=== PATIENT | female | born 1965 | race Caucasian/White ===

== ENCOUNTER → 2017-04-17 | Outpatient (CLI) | payer MEDICARE, OTHER ==
--- NOTE | 2017-04-18 08:22 | MM ---
Reason for exam: screening (asymptomatic). Last mammogram was performed 1 year and 8 months ago. History: Patient is postmenopausal. Benign u/S right breast needle core of the right breast, July 17, 2013. Benign US RT VAD breast biopsy of the right breast, June 05, 2013. Physical Findings: A clinical breast exam by your physician is recommended on an annual basis and results should be correlated with mammographic findings. MG 3D Screening Mammo W/Cad Bilateral CC and MLO view(s) were taken. Prior study comparison: August 03, 2015, bilateral MG screening mammo w CAD. August 04, 2014, bilateral MG screening mammo w CAD. The breast tissue is heterogeneously dense. This may lower the sensitivity of mammography. Finding: There are grouped/clustered calcifications in the right breast previously biopsied. There is a chronic nodularity in the left breast. ASSESSMENT: Incomplete: need additional imaging evaluation, BI-RAD 0 RECOMMENDATION: Special view mammogram of the right breast. [facility] will attempt to contact patient to return for supplemental views.
== END | disposition home or self-care (01) ==
LOC: RADMAMWWP 13:12
PROVIDERS: ATTEND Family Medicine
DX: Z12.31 Encounter for screening mammogram for malignant neoplasm of breast (principal); R92.2 Inconclusive mammogram
CPT/HCPCS: 77063; G0202

== ENCOUNTER → 2017-05-01 | Outpatient (CLI) | payer MEDICARE, OTHER ==
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
== END ==
LOC: WWCWWP 13:19
PROVIDERS: ATTEND Obstetrics & Gynecology
DX: Z01.419 Encounter for gynecological examination (general) (routine) without abnormal findings (principal)

== ENCOUNTER → 2018-09-26 | Outpatient (CLI) | payer MEDICARE, OTHER ==
--- NOTE | 2018-10-06 12:06 | MM ---
Reason for exam: screening (asymptomatic). Last mammogram was performed 1 year and 5 months ago. History: Patient is postmenopausal. No known family history of cancer. Benign u/S right breast needle core of the right breast, July 17, 2013. Benign US RT VAD breast biopsy of the right breast, June 05, 2013. MG 3D Screening Mammo W/Cad Bilateral CC and MLO view(s) were taken. Prior study comparison: April 17, 2017, bilateral MG 3d screening mammo w/cad. August 03, 2015, bilateral MG screening mammo w CAD. The breast tissue is extremely dense which could obscure a lesion on mammography. Previous mammotome on the right. No significant changes when compared with prior studies. ASSESSMENT: Benign, BI-RAD 2 RECOMMENDATION: Routine screening mammogram of both breasts in 1 year.
== END ==
LOC: RADMAMWWP 10:49 → EEVIPCON 11:00
PROVIDERS: ATTEND Family Medicine
DX: Z12.31 Encounter for screening mammogram for malignant neoplasm of breast (principal)
CPT/HCPCS: 77063; 77067

== ENCOUNTER → 2018-11-05 | Outpatient (CLI) | payer MEDICARE, OTHER ==
[2018-11-05 15:12] VITALS: BP 105/58; PULSE 102; RESP 16; TEMP 97.2; BMI 19.8
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
== END ==
LOC: WWCWWP 14:39
PROVIDERS: ATTEND Obstetrics & Gynecology
DX: Z53.9 Procedure and treatment not carried out, unspecified reason (principal)

== ENCOUNTER 2019-06-08 09:12 | Emergency (ER) | payer MEDICARE, OTHER ==
[2019-06-08 09:23] VITALS: TEMP 98.1
[2019-06-08] MEDS ORDERED: levETIRAcetam IV 500 MG in SODIUM CHLORIDE 0.9% 100 ML IVPB STA (09:23)
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
[2019-06-08 10:18] LABS: Basophils % (A) 0 %; Eosinophils # (A) 0.1 k/uL (0-0.7); Eosinophils % (A) 1 %; HCT 36.3 % (34.0-46.0); HGB 11.7 gm/dL (11.4-16.0); Lymphocytes # (A) 1.6 k/uL (1.0-4.8); Lymphocytes % (A) 36 %; MCH 29.6 pg (25.0-35.0); MCHC 32.3 g/dL (31.0-37.0); MCV 91.7 fL (80.0-100.0); Mean Platelet Volume 8.1; Monocytes # (A) 0.3 k/uL (0-1.0); Monocytes % (A) 6 %; Neutrophils # (A) 2.5 k/uL (1.3-7.7); Neutrophils % (A) 56 %; Platelet Count 181 k/uL (150-450); RBC 3.96 m/uL (3.80-5.40); RDW 12.9 % (11.5-15.5); WBC 4.5 k/uL (3.8-10.6)
[2019-06-08 10:25] LABS: ALT 17 U/L (9-52); AST 21 U/L (14-36); African American GFR (CKD) >90 (>60 ml/min/1.73 sqM); Alkaline Phosphatase 62 U/L (38-126); Anion Gap 6 mmol/L; Blood Urea Nitrogen 11 mg/dL (7-17); Calcium 9.7 mg/dL (8.4-10.2); Carbon Dioxide 26 mmol/L (22-30); Chloride 106 mmol/L (98-107); Creatine Kinase 43 U/L (30-135); Glucose 87 mg/dL (74-99); Magnesium 2.1 mg/dL (1.6-2.3); Potassium 4.3 mmol/L (3.5-5.1); Sodium 138 mmol/L (137-145); Total Bilirubin 0.3 mg/dL (0.2-1.3); Total Protein 6.6 g/dL (6.3-8.2)
[2019-06-08] MEDS ORDERED: DIVALPROEX 500 MG TABLET.DR PO STA (11:03)
[2019-06-08 11:50] VITALS: BP 104/61; PULSE 69; RESP 14
== END 2019-06-08 12:09 | disposition home or self-care (01) ==
LOC: EC 09:12 → SUPCPDRO 09:12 → EC 12:09
DX: G40.409 Other generalized epilepsy and epileptic syndromes, not intractable, without status epilepticus (principal); F79 Unspecified intellectual disabilities; F41.9 Anxiety disorder, unspecified; J30.2 Other seasonal allergic rhinitis; F17.200 Nicotine dependence, unspecified, uncomplicated; Z79.899 Other long term (current) drug therapy; Z91.410 Personal history of adult physical and sexual abuse
CPT/HCPCS: 36415; 93005; 80164; 80053; 82550; 83735; 85025; 99284; 96365; J1953

== ENCOUNTER 2019-06-08 15:25 | Inpatient (IN) | payer MEDICARE, OTHER ==
[2019-06-08] MEDS ORDERED: SODIUM CHLORIDE 0.9% 500 ML 500 ML IV STA (15:51)
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
[2019-06-08 16:59] LABS: Basophils % (A) 0 %; Eosinophils # (A) 0.1 k/uL (0-0.7); Eosinophils % (A) 1 %; HCT 40.4 % (34.0-46.0); HGB 13.4 gm/dL (11.4-16.0); Lymphocytes # (A) 1.1 k/uL (1.0-4.8); Lymphocytes % (A) 15 %; MCH 30.9 pg (25.0-35.0); MCHC 33.2 g/dL (31.0-37.0); Mean Platelet Volume 8.1; Monocytes # (A) 0.2 k/uL (0-1.0); Monocytes % (A) 3 %; Neutrophils # (A) 5.6 k/uL (1.3-7.7); Neutrophils % (A) 80 %; Platelet Count 191 k/uL (150-450); RBC 4.35 m/uL (3.80-5.40); RDW 14.1 % (11.5-15.5)
[2019-06-08 17:01] LABS: ALT 14 U/L (9-52); AST 27 U/L (14-36); African American GFR (CKD) >90 (>60 ml/min/1.73 sqM); Albumin 4.5 g/dL (3.5-5.0); Alkaline Phosphatase 68 U/L (38-126); Anion Gap 8 mmol/L; Blood Urea Nitrogen 11 mg/dL (7-17); Carbon Dioxide 27 mmol/L (22-30); Chloride 106 mmol/L (98-107); Creatine Kinase 57 U/L (30-135); Glucose 97 mg/dL (74-99); Potassium 4.9 mmol/L (3.5-5.1); Sodium 141 mmol/L (137-145); Total Bilirubin 0.3 mg/dL (0.2-1.3); Total Protein 7.4 g/dL (6.3-8.2)
[2019-06-08 17:50] LABS: Glucose,Whole Blood 102 mg/dL (75-99)
[2019-06-08] MEDS ORDERED: levETIRAcetam 500 MG TAB PO STA (18:20)
[2019-06-08] MEDS ORDERED: DIVALPROEX ER 500 MG TAB.ER.24H PO STA (18:20)
[2019-06-08] MEDS ORDERED: NALOXONE 0.4 MG/ML 1 ML VIAL IV PRN (18:34)
--- NOTE | 2019-06-08 18:45 | CT ---
EXAMINATION TYPE: CT brain wo con DATE OF EXAM: 06/08/2019 HISTORY: seizure CT DLP: 1099.4 mGycm. Automated Exposure Control for Dose Reduction was Utilized. TECHNIQUE: CT scan of the head is performed without contrast. COMPARISON: CT brain October 08, 2015. FINDINGS: There is no acute intracranial hemorrhage or midline shift identified. There is diffuse v entricular and sulcal prominence consistent with diffuse age-related cerebral atrophy most prominent over the bilateral frontal lobes. Cortez-white matter differentiation is preserved. The globes are int act and the visualized sinuses are clear. IMPRESSION: No acute intracranial hemorrhage or midline shift. There is stable mild diffuse bilater al frontal lobe atrophy.
[2019-06-08] MEDS ORDERED: IBUPROFEN 600 MG TAB PO PRN (19:03)
[2019-06-08] MEDS ORDERED: HYDROmorphone 0.5 MG/0.5 ML SYRINGE IVP PRN (19:04)
[2019-06-08] MEDS ORDERED: LORazepam 2 MG/ML INJ IV PRN (19:04)
[2019-06-08] MEDS ORDERED: ACETAMINOPHEN TAB 500 MG TAB PO PRN (19:04)
[2019-06-08] MEDS: SODIUM CHLORIDE 0.9% 1,000 ML IV SCH (19:10)
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
[2019-06-08 20:44] LABS: Amorphous Sediment,Urine Rare /hpf; Appearance,Urine Cloudy (Clear); Bilirubin,Urine Negative (Negative); Blood,Urine Negative (Negative); Color,Urine Light Yellow; Glucose,Urine (UA) Negative (Negative); Ketones,Urine Negative (Negative); Leukocyte Esterase,Urine Negative (Negative); Mucus,Urine Rare /hpf; Nitrite,Urine Negative (Negative); PH, Urine 7.5 (5.0-8.0); Protein,Urine Negative (Negative); RBC,Urine 3 /hpf (0-5); Urobilinogen,Urine <2.0 mg/dL (<2.0); WBC,Urine 1 /hpf (0-5)
[2019-06-08 20:58] LABS: Cocaine Screen,Urine Not Detected (NotDetected); Phencyclidine Screen,Urine Not Detected (NotDetected); Urn Cannabinoid Scrn Not Detected (NotDetected)
[2019-06-08 20:59] LABS: Amphetamine Screen,Urine Not Detected (NotDetected); Barbiturate Screen,Urine Not Detected (NotDetected); Benzodiazepines Screen,Urine Not Detected (NotDetected); Methadone Screen, Urine Not Detected (NotDetected); Opiate Screen,Urine Not Detected (NotDetected); Oxycodone Screen, Urine Not Detected (NotDetected); Tricyclic Antidepressant,Urine Not Detected (NotDetected)
--- NOTE | 2019-06-08 21:55 | HP ---
HISTORY AND PHYSICAL CHIEF COMPLAINT: Seizures. HISTORY OF PRESENT ILLNESS: This 54-year-old woman with a past medical history of seizure disorder, mental disabilities, seasonal allergies, history of anxiety being followed Dr. Eh Hennessy in the outpatient setting, living in an adult foster care. The patient admitted with recurrent seizures, which appears to be like grand mal tonic-clonic seizures. The patient was discharged home but chaotic as the detention is, shortly after that, the patient had a seizure lasting about 5 minutes and the patient taken to [facility] and admitted to the hospital for further evaluation and treatment. The patient also has some myoclonic jerks also. There is no history of fever, rigors or chills. There is no history any chest pain, palpitations or hematochezia or melena at this time. PAST MEDICAL HISTORY: History of seizure disorder, breakthrough seizures, mental disability, history of anxiety, mood disorder. MEDICATIONS: Home medications are: 1. Keppra 1000 mg p.o. b.i.d. 2. Klonopin 0.5 mg b.i.d. 3. Vitamin B1 100 mg p.o. daily. 4. Multivitamins one p.o. daily. 5. Motrin 600 mg daily q.i.d. p.r.n. 6. Folic acid 1 mg p.o. daily. 7. Fexofenadine 180 mg p.o. daily. 8. Colace 100 mg q.h.s. 9. Depakote ER 500 mg p.o. b.i.d. 10.Calcium 600 mg p.o. b.i.d. ALLERGIES: None. FAMILY HISTORY: Is unknown, but the patient is adopted. SOCIAL HISTORY: History of smoking. No history of alcohol intake. REVIEW OF SYSTEMS: ENT: No diminished vision. No diminished hearing. CARDIOVASCULAR system: No angina, or palpitations. RESPIRATORY SYSTEM: No cough. No hemoptysis. GI no nausea or vomiting. no dysuria. NERVOUS SYSTEM: As mentioned earlier. ALLERGY/IMMUNOLOGY: No asthma or hayfever. MUSCULOSKELETAL as mentioned earlier. HEMATOLOGY/ONCOLOGY: No history of anemia. ENDOCRINE: No history of diabetes or hypothyroidism. CONSTITUTIONAL: As mentioned earlier. DERMATOLOGY: Negative. RHEUMATOLOGY negative. PSYCHIATRY as mentioned earlier. PHYSICAL EXAMINATION: Alert and oriented x3. Pulse is 71. Blood pressure 101/59, respiration 18, temperature 98.7, pulse ox 98% on room air. HEENT: Conjunctivae normal. NECK: No JVD. CARDIOVASCULAR: S1, S2 muffled. RESPIRATION: Breath sounds diminished in the bases. No rhonchi. No crackles. ABDOMEN: Soft, nontender. No mass palpable. LEGS: No edema. No swelling. NERVOUS SYSTEM: Higher functions as mentioned earlier. Moves all four limbs. No focal motor or sensory deficits. LYMPHATICS: No lymph nodes palpable in the neck, axilla or groin. SKIN: No ulcers, rashes or bleeding. JOINTS: No active deforming arthropathy. LABS: CBC within normal limits. Creatinine 0.[address] scan showed frontal lobe atrophy. EKG shows no acute changes. ASSESSMENT: 1. Seizures and possible breakthrough seizure. 2. History of seizures. 3. Medical disability. 4. Some mild frontal lobe atrophy in the CT scan. 5. History of anxiety. 6. History of continued ongoing nicotine dependence. RECOMMENDATIONS AND DISCUSSION: This 54-year-old woman who presented with multiple medical issues, at this time, I recommend to continue current medications, management, symptomatic treatment. I recommend UA with micro, drug screen. Otherwise, neurology evaluation. Neuro checks. Seizure precautions. Prognosis guarded because of multiple complex medical issues. We will resume the home medications. Further recommendations to follow. Depakote level was previously found to be normal. We will continue to monitor. Prognosis guarded. Further recommendations to follow. A copy of dictation being forwarded to Dr. Eh Hennessy who is the primary physician. MMODL / MATILDAN: [id number] /
[2019-06-08] MEDS: CALCIUM CARBONATE 500 MG CHEWABLE PO SCH (23:44)
[2019-06-08] MEDS: DOCUSATE 100 MG CAP PO SCH (23:44)
[2019-06-08] MEDS: clonazePAM 0.5 MG TAB PO SCH (23:44)
[2019-06-08] MEDS: HEPARIN SODIUM,PORCINE 5,000 UNIT/ML 1 ML VIAL SQ SCH (23:44)
[2019-06-09 07:28] LABS: Basophils % (A) 0 %; Eosinophils % (A) 1 %; HCT 34.4 % (34.0-46.0); HGB 11.5 gm/dL (11.4-16.0); Lymphocytes # (A) 2.5 k/uL (1.0-4.8); Lymphocytes % (A) 43 %; MCH 31.1 pg (25.0-35.0); MCHC 33.4 g/dL (31.0-37.0); Mean Platelet Volume 8.2; Monocytes # (A) 0.3 k/uL (0-1.0); Monocytes % (A) 5 %; Neutrophils # (A) 2.9 k/uL (1.3-7.7); Neutrophils % (A) 49 %; Platelet Count 170 k/uL (150-450); WBC 5.8 k/uL (3.8-10.6)
[2019-06-09 07:31] LABS: African American GFR (CKD) >90 (>60 ml/min/1.73 sqM); Anion Gap 6 mmol/L; Blood Urea Nitrogen 13 mg/dL (7-17); Calcium 9.3 mg/dL (8.4-10.2); Carbon Dioxide 28 mmol/L (22-30); Chloride 107 mmol/L (98-107); Glucose 86 mg/dL (74-99); Sodium 141 mmol/L (137-145)
[2019-06-09] MEDS: PANTOPRAZOLE 40 MG TABLET PO SCH (09:24)
[2019-06-09] MEDS: HEPARIN SODIUM,PORCINE 5,000 UNIT/ML 1 ML VIAL SQ SCH ×2 (09:24→20:09)
[2019-06-09] MEDS: MULTIVITAMINS, THERA 1 EACH TAB PO SCH (09:24)
[2019-06-09] MEDS: DIVALPROEX ER 500 MG TAB.ER.24H PO SCH ×2 (09:24→20:48)
[2019-06-09] MEDS: clonazePAM 0.5 MG TAB PO SCH ×2 (09:24→20:09)
[2019-06-09] MEDS: CALCIUM CARBONATE 500 MG CHEWABLE PO SCH ×2 (09:24→20:09)
[2019-06-09] MEDS: levETIRAcetam 500 MG TAB PO SCH ×2 (09:24→20:09)
[2019-06-09] MEDS: FOLIC ACID 1 MG TAB PO SCH (09:24)
[2019-06-09] MEDS: THIAMINE 100 MG TAB PO SCH (09:24)
--- NOTE | 2019-06-09 12:20 | P.PN ---
Subjective Progress Note Date: 06/09/19 Principal diagnosis: Seizure disorder Obtained MAR from long term, which shows she had run out of both her Depakote and Keppra for days. No seizure while in-house. EEG. Patient would like to go home. Objective - Vital Signs Vital signs: Vital Signs Temp 99.2 F 06/09/19 12:05 Pulse 88 06/09/19 12:05 Resp 15 06/09/19 12:05 BP 102/55 06/09/19 12:05 Pulse Ox 95 06/09/19 12:05 Intake & Output 06/08/19 06/09/19 06/09/19 18:59 06:59 18:59 Intake Total 60 Output Total 700 Balance -640 Weight 52.163 kg Intake: Oral 60 Output: Urine 700 Other: Voiding Method Bedpan Bedside Commode # Bowel Movements 1 - Exam Gen NAD Pleasant and cooperative MS A+Ox3 Normal speech CN II-XII grossly intact no nystagmus Motor Normal bulk/tone No tremors Intermittent action myoclonic jerks STRICKLAND x4 Sens Intact to LT x4 Coord Not tested DTRs 2+/4 sym throughout Gait Deferred - Labs CBC & Chem 7: 06/09/19 06:42 06/09/19 06:42 Labs: Abnormal Lab Results - Last 24 Hours (Table) 06/08/19 06/08/19 06/08/19 Range/Units 16:35 17:48 20:30 RBC (3.80-5.40) m/uL Creatinine 0.39 L (0.52-1.04) mg/dL POC Glucose (mg/dL) 102 H (75-99) mg/dL Urine Appearance Cloudy H (Clear) Amorphous Sediment Rare H (None) /hpf Urine Mucus Rare H (None) /hpf 06/09/19 06/09/19 Range/Units 06:42 06:42 RBC 3.70 L (3.80-5.40) m/uL Creatinine 0.45 L (0.52-1.04) mg/dL POC Glucose (mg/dL) (75-99) mg/dL Urine Appearance (Clear) Amorphous Sediment (None) /hpf Urine Mucus (None) /hpf - Imaging and Cardiology EEG 06/09/19. No EPD. Polymorphic theta and delta slowing. Myoclonus not epileptic in nature. Please see separate report for details. Assessment and Plan Assessment: Seizure disorder with report of increased seizure frequency, likely due to having run out of AEDs/non-compliance Plan: -Serial VPA levels all within therapeutic range -LEV level pending -Given the new historical information, will make sure to keep patient on her usual AED regimen, i.e. Depakote ER 500mg po bid, Keppra 1g po q12h -EEG unrevealing -Seizure precautions -If no recurrent seizure x 24 hours, may discharge from acute stay and follow up with outpatient neurology (she sees Dr. Luciano) within 1-2 weeks -d/w patient and staff reporter. All questions answered. -No other inpatient neuro res at this time. Will revisit patient prn. Please call with new ?. Thank you again for this consultation. Time with Patient: Less than 30 (Time spent in direct patient care, greater than 50% of which was spent in [id number] counseling and coordination of care: 25 minutes)
--- NOTE | 2019-06-09 12:26 | EEG ---
ELECTROENCEPHALOGRAM REPORT DATE OF TESTING: June 09, 2019 CLINICAL PROBLEM: History of seizure disorder with breakthrough seizures. Also intermittent myoclonic jerks. EEG was requested to rule out epileptic activity. TYPE OF RECORDING: Bedside tracing using the 10-20 international electrode placement system. No sedation was given prior to the beginning of this recording. FINDINGS: The background of this tracing is seen with a polymorphic theta and occasionally delta slowing. There are intermittent myoclonic jerks captured during this recording that have EMG changes but without other electrographic correlates. Photic stimulation does not elicit a driving response. Hyperventilation is not performed in this recording. There is no definitive sleep architecture seen. There is no background asymmetry, ictal or interictal patterns appreciated. IMPRESSION: This is an abnormal electroencephalogram with excessive background slowing that is non-specific but may be seen in cerebral dysfunction of any cause. The clinical myoclonic jerks are seen with EMG changes only. There is no background asymmetry or epileptiform patterns seen in this recording. Clinical correlation is advised. MMNATALY / IJN: [id number] / EMMETT
[2019-06-09] MEDS: SODIUM CHLORIDE 0.9% 1,000 ML IV SCH (17:47)
--- NOTE | 2019-06-09 19:38 | PN ---
PROGRESS NOTE DATE OF SERVICE: 06/09/2019 This 54-year-old woman who was admitted with seizure disorder and possibly breakthrough seizures is being closely monitored. No chest pain. No palpitations. No fever. PHYSICAL EXAMINATION: Alert and oriented x3. Pulse 73, blood pressure 109/57, respiration 17, temperature 98.6, pulse ox 94% on room air. HEENT: Conjunctivae normal. NECK: No jugular venous distention. CARDIOVASCULAR SYSTEM: S1, S2 muffled. RESPIRATORY SYSTEM: Breath sounds diminished at the bases. No rhonchi. No crackles. ABDOMEN: Soft, non-tender. LEGS: No edema. No swelling. NERVOUS SYSTEM: No focal deficit. LABS: CBC within normal limits. Sodium 141, potassium 4.1. ASSESSMENT: 1. Seizures and possible breakthrough seizures. 2. History of seizure. 3. Medical disability. 4. Some mild frontal lobe atrophy on the CT scan. 5. History of anxiety. 6. History of continued and ongoing nicotine dependence. RECOMMENDATIONS AND DISCUSSION: I recommend to continue current medications, continue with the close monitoring, symptomatic treatment. EEG. Neurology evaluation. Increase ambulation. Guarded prognosis. Further recommendations to follow. If the patient is seizure-free in the next 24 hours, possibly going home. MMODL / IJN: [id number] /
[2019-06-09] MEDS: DOCUSATE 100 MG CAP PO SCH (20:09)
[2019-06-10 05:10] VITALS: RESP 16
[2019-06-10 07:51] LABS: Basophils % (A) 1 %; Eosinophils # (A) 0.1 k/uL (0-0.7); Eosinophils % (A) 2 %; HCT 32.7 % (34.0-46.0); HGB 10.9 gm/dL (11.4-16.0); Lymphocytes # (A) 2.5 k/uL (1.0-4.8); Lymphocytes % (A) 57 %; MCH 32.3 pg (25.0-35.0); MCHC 33.5 g/dL (31.0-37.0); MCV 96.4 fL (80.0-100.0); Mean Platelet Volume 10.8; Monocytes # (A) 0.3 k/uL (0-1.0); Monocytes % (A) 6 %; Neutrophils # (A) 1.4 k/uL (1.3-7.7); Neutrophils % (A) 33 %; Platelet Count 128 k/uL (150-450); RBC 3.39 m/uL (3.80-5.40); RDW 14.2 % (11.5-15.5); WBC 4.4 k/uL (3.8-10.6)
[2019-06-10 07:52] LABS: African American GFR (CKD) >90 (>60 ml/min/1.73 sqM); Anion Gap 5 mmol/L; Blood Urea Nitrogen 11 mg/dL (7-17); Calcium 9.4 mg/dL (8.4-10.2); Carbon Dioxide 28 mmol/L (22-30); Chloride 103 mmol/L (98-107); Glucose 88 mg/dL (74-99); Potassium 4.7 mmol/L (3.5-5.1); Sodium 136 mmol/L (137-145)
[2019-06-10] MEDS: CALCIUM CARBONATE 500 MG CHEWABLE PO SCH (08:18)
[2019-06-10] MEDS: levETIRAcetam 500 MG TAB PO SCH (08:18)
[2019-06-10] MEDS: MULTIVITAMINS, THERA 1 EACH TAB PO SCH (08:18)
[2019-06-10] MEDS: FOLIC ACID 1 MG TAB PO SCH (08:18)
[2019-06-10] MEDS: DIVALPROEX ER 500 MG TAB.ER.24H PO SCH (08:18)
[2019-06-10] MEDS: THIAMINE 100 MG TAB PO SCH (08:18)
[2019-06-10] MEDS: PANTOPRAZOLE 40 MG TABLET PO SCH (08:18)
[2019-06-10] MEDS: HEPARIN SODIUM,PORCINE 5,000 UNIT/ML 1 ML VIAL SQ SCH (08:19)
[2019-06-10] MEDS: clonazePAM 0.5 MG TAB PO SCH (08:25)
--- NOTE | 2019-06-10 09:28 | P.PN ---
Subjective Progress Note Date: 06/10/19 Principal diagnosis: Seizure disorder No seizure since admitted, now going into 48 hours. No side effects noted to AEDs. Patient would like to go home today. No other neuro c/o. Objective - Vital Signs Vital signs: Vital Signs Temp 98.4 F 06/10/19 05:00 Pulse 71 06/10/19 05:00 Resp 16 06/10/19 05:00 BP 95/60 06/10/19 05:00 Pulse Ox 95 06/10/19 05:00 Intake & Output 06/09/19 06/10/19 06/10/19 18:59 06:59 18:59 Intake Total 760 1440 Balance 760 1440 Intake: Intake, IV Titration 400 600 Amount Sodium Chloride 0.9% 1, 400 600 000 ml @ 50 mls/hr IV . Q20H [facility] Rx#:[id number] Oral 360 840 Other: Voiding Method Bedside Commode Toilet # Voids 3 3 - Exam Gen NAD Pleasant and cooperative MS A+Ox3 Normal speech CN II-XII grossly intact no nystagmus Motor Normal bulk/tone No tremors or myoclonus this am [place] x4 Sens Intact to LT x4 Coord Not tested DTRs 2+/4 sym throughout Gait Deferred - Labs CBC & Chem 7: 06/10/19 07:17 06/10/19 07:17 Labs: Abnormal Lab Results - Last 24 Hours (Table) 06/10/19 06/10/19 Range/Units 07:17 07:17 RBC 3.39 L (3.80-5.40) m/uL Hgb 10.9 L (11.4-16.0) gm/dL Hct 32.7 L (34.0-46.0) % Plt Count 128 L (150-450) k/uL Sodium 136 L (137-145) mmol/L LEV 13.9 Assessment and Plan Assessment: Seizure disorder with report of increased seizure frequency, likely due to having run out of AEDs/non-compliance Plan: -Serial VPA levels all within therapeutic range -LEV level also within reference range -Continue patient on her usual AED regimen, i.e. Depakote ER 500mg po bid, Keppra 1g po q12h -EEG unrevealing -Seizure precautions/she states she does not drive. Same common senses applies to engaging in any activity that may endanger patient and/or others should she have recurrent seizure activity -Follow up with outpatient neuro in next 1-2 weeks -d/w patient in detail. All questions answered -Patient now seizure-free nearly 48 hours. She can be discharged from acute neuro standpoint. We will sign off. Please call back with new ?. Thank you again for this consultation. Time with Patient: Less than 30 (Time spent in direct patient care, greater than 50% of which was spent in [id number] counseling and coordination of care: 25 minutes)
[2019-06-10 11:04] VITALS: BP 95/58; PULSE 62; TEMP 97.6
--- NOTE | 2019-06-10 11:41 | P.DS ---
Providers Date of admission: 06/08/19 18:07 Expected date of discharge: 06/10/19 Attending physician: Luis Antonio Lara Consults: 06/08/19 18:34 Consult Physician Routine Consulting Provider: Osman Hampton Consult Reason/Comments: increase frequency from baseline seizure Do you want consulting provider notified?: Yes Primary care physician: Eh Hennessy Hospital Course: Final diagnosis Seizures and possible breakthrough seizures History of seizure Medical disability Some mild frontal lobe atrophy on the computed tomography scan history of anxiety History of continued and ongoing nicotine dependence Discharge disposition Patient is being discharged in a stable condition with guarded prognosis back to her [facility] home and will follow-up with her neurologist in the outpatient setting in 1-2 weeks. Patient will continue her seizure medications at this time. Total time taken is 35 minutes. History of present illness This is a 54-year-old female who was recently admitted with seizure disorder and possible breakthrough seizures and was being closely monitored. Neurology consulted the patient during hospitalization and recommends to follow-up with her neurologist in the outpatient setting in 1-2 weeks. During hospitalization an EEG was done showing excessive background slowing that's nonspecific but may be seen in cerebral dysfunctions of any cause with clinical myoclonic jerks that are seen with EMG changes only. Patient did not exhibit any seizure-like activity during hospitalization. Patient denies any chest pain, shortness of breath, or palpitations at this time. Patient is afebrile. Patient denies any nausea or vomiting and is tolerating diet. Currently patient's condition is stable with much improvement. Patient will follow-up with her neurologist as well as primary care provider Dr. Hennessy upon discharge. Guarded prognosis. On exam vital signs are stable. Blood pressure is 95/58, pulse is 62, respirations are 16, temp is 97.6 Fahrenheit, oxygen saturation is 96% on room air. Cardio S1, S2 are muffled. Breath sounds are diminished at the bases otherwise clear to auscultation. Abdomen is soft and nontender. Nervous system shows no focal deficits. Please refer to medication reconciliation sheet for a list of medications. Patient Condition at Discharge: Stable Plan - Discharge Summary Discharge Rx Participant: Yes New Discharge Prescriptions: Continue Docusate [Colace] 100 mg PO HS Ibuprofen [Motrin] 600 mg PO QID PRN PRN Reason: Pain Fexofenadine HCl 180 mg PO DAILY Divalproex ER [Depakote ER] 500 mg PO BID levETIRAcetam [Keppra] 1,000 mg PO Q12HR #60 tab Thiamine [Vitamin B-1] 100 mg PO DAILY Multivitamins, Thera [Multivitamin (formulary)] 1 tab PO DAILY Calcium Carbonate [Calcium] 600 mg PO BID clonazePAM [KlonoPIN] 0.5 mg PO BID Folic Acid 1 mg PO DAILY Discharge Medication List Docusate [Colace] 100 mg PO HS 09/02/14 [History] Ibuprofen [Motrin] 600 mg PO QID PRN 05/08/15 [History] Divalproex ER [Depakote ER] 500 mg PO BID 10/02/15 [History] Fexofenadine HCl 180 mg PO DAILY 10/02/15 [History] Calcium Carbonate [Calcium] 600 mg PO BID 10/08/15 [History] Multivitamins, Thera [Multivitamin (formulary)] 1 tab PO DAILY 10/08/15 [History] Thiamine [Vitamin B-1] 100 mg PO DAILY 10/08/15 [History] levETIRAcetam [Keppra] 1,000 mg PO Q12HR #60 tab 10/08/15 [Rx] Folic Acid 1 mg PO DAILY 06/08/19 [History] clonazePAM [KlonoPIN] 0.5 mg PO BID 06/08/19 [History] Follow up Appointment(s)/Referral(s): Eh Hennessy MD [Primary Care Provider] - 1-2 days Activity/Diet/Wound Care/Special Instructions: [facility] Continue current diet Follow-up with primary care provider this week Follow-up with neurology in 1-2 weeks Discharge Disposition: TRANSFER TO SNF/ECF
== END 2019-06-10 15:45 | disposition home or self-care (01) | DRG 101 ==
LOC: EC 15:25 → 4MS4W 18:07 → 4SSUR 18:51 → 3NMEDONC 06-09 11:11
PROVIDERS: ADMIT Hospitalist; ATTEND Hospitalist
DX: G40.409 Other generalized epilepsy and epileptic syndromes, not intractable, without status epilepticus (principal); G31.89 Other specified degenerative diseases of nervous system; F17.200 Nicotine dependence, unspecified, uncomplicated; F39 Unspecified mood [affective] disorder; F41.9 Anxiety disorder, unspecified; J30.2 Other seasonal allergic rhinitis; T42.76XA Underdosing of unspecified antiepileptic and sedative-hypnotic drugs, initial encounter; Z79.899 Other long term (current) drug therapy; Z91.410 Personal history of adult physical and sexual abuse; Z83.3 Family history of diabetes mellitus
CPT/HCPCS: 36415; 70450; 80048; 80053; 80164; 80177; 80306; 81001; 82550; 83605; 85025; 93005; 95816; 96360; 99285

== ENCOUNTER 2023-03-13 16:23 | Observation (INO) | payer MEDICARE, OTHER ==
[2023-03-13 18:52] LABS: Basophils % (A) 0 %; Eosinophils # (A) 0.1 k/uL (0-0.7); Eosinophils % (A) 1 %; HGB 11.4 gm/dL (11.4-16.0); Lymphocytes % (A) 44 %; MCH 32.2 pg (25.0-35.0); MCHC 34.5 g/dL (31.0-37.0); MCV 93.1 fL (80.0-100.0); Mean Platelet Volume 8.1; Monocytes # (A) 0.3 k/uL (0-1.0); Monocytes % (A) 5 %; Neutrophils # (A) 3.3 k/uL (1.3-7.7); Neutrophils % (A) 48 %; Platelet Count 219 k/uL (150-450); RBC 3.54 m/uL (3.80-5.40); RDW 12.6 % (11.5-15.5); WBC 6.8 k/uL (3.8-10.6)
[2023-03-13 19:19] LABS: ALT 13 U/L (4-34); AST 27 U/L (14-36); African American GFR (CKD) >90 (>60 ml/min/1.73 sqM); Albumin 3.9 g/dL (3.5-5.0); Alkaline Phosphatase 71 U/L (38-126); Anion Gap 6 mmol/L; Blood Urea Nitrogen 21 mg/dL (7-17); C Reactive Protein <0.5 mg/dL (<1.0); Calcium 9.4 mg/dL (8.4-10.2); Carbon Dioxide 27 mmol/L (22-30); Chloride 98 mmol/L (98-107); Glucose 92 mg/dL (74-99); Non-African American GFR(CKD) >90 (>60 ml/min/1.73 sqM); Potassium 5.2 mmol/L (3.5-5.1); Sodium 131 mmol/L (137-145); Total Bilirubin 0.3 mg/dL (0.2-1.3); Total Protein 6.7 g/dL (6.3-8.2)
[2023-03-13] MEDS ORDERED: traMADol 50 MG TAB PO PRN (21:23)
[2023-03-13] MEDS ORDERED: MAG HYDROX/AL HYDROX/SIMETH 30 ML CUP PO PRN (21:23)
[2023-03-13] MEDS ORDERED: ACETAMINOPHEN TAB 325 MG TAB PO PRN (21:23)
[2023-03-13] MEDS ORDERED: ONDANSETRON 4 MG/2 ML VIAL IVP PRN (21:23)
[2023-03-13] MEDS ORDERED: NALOXONE 0.4 MG/ML 1 ML VIAL IV PRN (21:23)
[2023-03-13] MEDS: SODIUM CHLORIDE 0.9% 1,000 ML IV SCH (21:36)
[2023-03-13] MEDS: AMPICILLIN-SULBACTAM 3 GM in SODIUM CHLORIDE 0.9% 100 ML IVPB SCH (21:38)
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
[2023-03-14] MEDS: AMPICILLIN-SULBACTAM 3 GM in SODIUM CHLORIDE 0.9% 100 ML IVPB SCH (06:16)
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
[2023-03-14] MEDS: clonazePAM 0.5 MG TAB PO SCH ×2 (10:36→20:22)
[2023-03-14] MEDS: levETIRAcetam 500 MG TAB PO SCH ×2 (10:36→20:22)
[2023-03-14] MEDS: DIVALPROEX ER 500 MG TAB.ER.24H PO SCH ×2 (10:36→20:22)
[2023-03-14] MEDS ORDERED: VANCOMYCIN IV PER PHARMACY 1 EACH MISC MISCELLANE PRN (12:12)
[2023-03-14 13:20] VITALS: BMI 18.3
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
[2023-03-14] MEDS: SODIUM CHLORIDE 0.9% 1,000 ML IV SCH ×2 (14:00→23:08)
[2023-03-14] MEDS: VANCOMYCIN 750 MG in SODIUM CHLORIDE 0.9% 250 ML IVPB SCH (14:01)
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
[2023-03-15] MEDS: VANCOMYCIN 750 MG in SODIUM CHLORIDE 0.9% 250 ML IVPB SCH ×2 (00:02→13:12)
[2023-03-15] MEDS: levETIRAcetam 500 MG TAB PO SCH ×2 (08:01→20:23)
[2023-03-15] MEDS: clonazePAM 0.5 MG TAB PO SCH ×2 (08:02→20:23)
[2023-03-15] MEDS: FOLIC ACID 1 MG TAB PO SCH (08:02)
[2023-03-15] MEDS: DIVALPROEX ER 500 MG TAB.ER.24H PO SCH ×2 (08:02→20:23)
[2023-03-15 08:23] VITALS: RESP 16
[2023-03-15 11:11] LABS: Blood Urea Nitrogen 9.7 mg/dL (9.0-27.0); Calcium 9.5 mg/dL (8.7-10.3); Carbon Dioxide 25.4 mmol/L (21.6-31.8); Chloride 98 mmol/L (96-109); Glucose 91 mg/dL (70-110); Potassium 5.5 mmol/L (3.5-5.5); Sodium 135 mmol/L (135-145)
[2023-03-15] MEDS ORDERED: SODIUM POLYSTYRENE SULFONATE 15 GM/60 ML BOTTLE PO ONE (11:30)
--- NOTE | 2023-03-15 12:15 | P.PN ---
Subjective Progress Note Date: 03/15/23 Principal diagnosis: Left thumb infection. This is a 58-year-old female who was evaluated in our office yesterday with Dr. Gomez for an infection in her left thumb. The patient states that it started out as a blister and progressively got worse. She denies any recent fever or c hills. She had been seen by her primary care physician and referred to our office. Her PCP had gotten cultures which were sent to [facility] on 03/07/2023. Final results on 03/13/2023 reveal moderate MRSA. She has been on multiple courses of oral antibiotics with minimal improvement. She was admitted from the ER last night for IV antibiotics and evaluation with infectious disease. 03/15/2023: The patient is stable from an orthopedic standpoint. She has been seen by internal medicine and infectious disease. Her antibiotics have been changed to vancomycin. She has had no fever or chills. She has no new complaints or concerns today. She states that the thumb is feeling slightly better. Objective - Vital Signs Vital signs: Vital Signs Temp 98.3 F 03/15/23 07:00 Pulse 67 03/15/23 07:00 Resp 16 03/15/23 07:00 BP 99/59 03/15/23 07:00 Pulse Ox 96 03/15/23 07:00 FiO2 Intake & Output 03/14/23 03/15/23 03/15/23 18:59 06:59 18:59 Intake Total 660 Balance 660 Weight 49.895 kg Intake: Oral 660 Other: # Voids 3 2 - Exam Exam of the left thumb reveals a 1-2 cm wound about the radial aspect of the dorsal thumb in the region of the IP joint. She has mild erythema to the surrounding area. There is purulence noted at the wound but no active drainage. She has slight improvement of movement at the IP joint. She has fairly good motion at the MCP and CMC joints of the thumb. Neurovascular status to the u pper extremity is intact. - Labs CBC & Chem 7: 03/13/23 18:18 03/15/23 05:33 Labs: Microbiology - Last 24 Hours (Table) 03/13/23 18:18 Blood Culture - Preliminary Blood Assessment and Plan (1) MRSA infection Current Visit: Yes Status: Acute Code(s): A49.02 - METHICILLIN RESIS STAPH INFECTION, UNSP SITE SNOMED Code(s): 577986270 (2) Infection of thumb Current Visit: Yes Status: Acute Code(s): L08.9 - LOCAL INFECTION OF THE SKIN AND SUBCUTANEOUS TISSUE, UNSP SNOMED Code(s): 764045998 (3) Recurrent seizures Current Visit: No Status: Acute Code(s): G40.909 - EPILEPSY, UNSP, NOT INTRACTABLE, WITHOUT STATUS EPILEPTICUS SNOMED Code(s): 81817700 Plan: The clinical findings are discussed with the patient. She will continue on the IV vancomycin. Local wound care per infectious disease. I did place some A quacel silver on the wound today with a sterile 2 x 2 and Radha. Plan discharge to home with oral antibiotics when cleared with medicine and infectious disease.
--- NOTE | 2023-03-15 13:06 | P.PN ---
Subjective Progress Note Date: 03/15/23 Subjective: She has seen and examined at bedside. No acute events overnight. Denies any new complaints. Pertinent positives and negatives as discussed above, a complete review of syst ems was performed and all other systems are negative. Vitals Signs Reviewed. General: nontoxic, no distress, appears at stated age Derm: warm, dry, left thumb covered in dressing Head: atraumatic, normocephalic, symmetric Eyes: EOMI, no lid lag, anicteric sclera, pupils equal round reactive to light ENT: Nose and ears atraumatic Neck: No thyromegaly, supple Mouth: no lip lesion, mucus membranes moist Cardiovascular: S1S2 reg, no murmur, no edema Lungs: clear to auscultation bilateral, no rhonchi, no rales, no wheeze, no accessory muscle use Abdominal: soft, nontender to palpation, no guarding, no appreciable organomegaly Ext: no gross muscle atrophy, muscle strength muscle strength 5 out of 5 in all 4 extremities, no contractures Neuro: CN II-XII grossly intact, has intention tremor bilaterally Psych: Alert, oriented, appropriate affect Data Reviewed Today: Pertinent Labs: Sodium 135, potassium 5.5, creatinine 0.5 Imaging: No new imaging Assessment and Plan: Left thumb infection, cultures in outpatient setting grew MRSA Failed outpatient antibiotic therapy Mild hyperkalemia Hyponatremia, resolved -Orthopedic surgery note reviewed, continue local wound care -ID consulted, currently on IV vancomycin, monitor for renal toxicity -Blood cultures pending -Mild hyperkalemia, given Kayexalate once 15 mg Chronic: Seizure disorder -Continue home medications Patient is medically optimized from medicine standpoint, pending final antibiotic recommendations. Thank you for allowing us to participate in the care of this pleasant patient. Do not hesitate to contact us with questions. Someone can be reached from the [facility] [place][Note 3] hospitalist group all hours of the day at [phone] or via [employer] serve. Objective - Vital Signs Vital signs: Vital Signs Temp 98.3 F 03/15/23 07:00 Pulse 67 03/15/23 07:00 Resp 16 03/15/23 07:00 BP 99/59 03/15/23 07:00 Pulse Ox 96 03/15/23 07:00 FiO2 Intake & Output 06/21/23 06/22/23 06/22/23 18:59 06:59 18:59 Intake Total 660 296 Balance 660 296 Weight 49.895 kg Intake: Oral 660 296 Other: # Voids 3 2 1 - Labs CBC & Chem 7: 03/13/23 18:18 03/15/23 05:33 Labs: Abnormal Lab Results - Last 24 Hours (Table) 03/15/23 Range/Units 05:33 Creatinine 0.5 L (0.6-1.5) mg/dL Microbiology - Last 24 Hours (Table) 03/13/23 18:18 Blood Culture - Preliminary Blood
[2023-03-15] MEDS: SODIUM CHLORIDE 0.9% 1,000 ML IV SCH (13:12)
[2023-03-16] MEDS: VANCOMYCIN 750 MG in SODIUM CHLORIDE 0.9% 250 ML IVPB SCH ×2 (00:43→12:34)
[2023-03-16] MEDS: SODIUM CHLORIDE 0.9% 1,000 ML IV SCH (00:44)
--- NOTE | 2023-03-16 07:22 | P.PN ---
Subjective Progress Note Date: 03/15/23 Principal diagnosis: L thumb infection Patient is a 58-year-old female with a past medical history significant for seizure disorder mental disability apparently did have a infection to the left thumb area which apparently started as a blister and has progressed, apparently outpatient culture positive for MRSA and the patient has failed outpatient oral antibiotic therapy. On today's evaluation that is 03/15/2023, the patient denies having any fever or any chills, the patient left thumb swelling and pain has slightly decreased in intensity no drainage no chest pain no shortness of breath or cough no abdominal pain no diarrhea Objective - Vital Signs Vital signs: Vital Signs Temp 98.3 F 03/15/23 07:00 Pulse 67 03/15/23 07:00 Resp 16 03/15/23 07:00 BP 99/59 03/15/23 07:00 Pulse Ox 96 03/15/23 07:00 FiO2 Intake & Output 03/14/23 03/15/23 03/15/23 18:59 06:59 18:59 Intake Total 660 296 Balance 660 296 Weight 49.895 kg Intake: Oral 660 296 Other: # Voids 3 2 1 - Exam GENERAL DESCRIPTION: Middle-aged female lying in bed in no distress RESPIRATORY SYSTEM: Unlabored breathing , decreased breath sounds at bases HEART: S1 S2 regular rate and rhythm ,no loud murmurs ABDOMEN: Soft , no tenderness EXTREMITIES: Left thumb wound with minimal slough tissue minimal surrounding swelling and redness no drainage - Labs CBC & Chem 7: 03/13/23 18:18 03/15/23 05:33 Labs: Abnormal Lab Results - Last 24 Hours (Table) 03/15/23 Range/Units 05:33 Creatinine 0.5 L (0.6-1.5) mg/dL Microbiology - Last 24 Hours (Table) 03/13/23 18:18 Blood Culture - Preliminary Blood Assessment and Plan (1) Infection of thumb Current Visit: Yes Status: Acute Code(s): L08.9 - LOCAL INFECTION OF THE SKIN AND SUBCUTANEOUS TISSUE, UNSP SNOMED Code(s): 802682830 (2) MRSA infection Current Visit: Yes Status: Acute Code(s): A49.02 - METHICILLIN RESIS STAPH INFECTION, UNSP SITE SNOMED Code(s): 471696299 Plan: 1patient presented hospital with left thumb wound infection and cellulitis with outpatient culture positive for MRSA and the patient has been outpatient oral antibiotic therapy 2- pt to continue with vancomycin pharmacy to dose with a target trough of 15 , We will try to obtain outpatient culture from the PCP office to determine her discharge antibiotic therapy Time with Patient: Less than 30
[2023-03-16 07:50] VITALS: BP 101/58; PULSE 58; TEMP 98.3
--- NOTE | 2023-03-16 09:02 | P.PN ---
Subjective Progress Note Date: 03/16/23 Principal diagnosis: Left thumb infection. This is a 58-year-old female who was evaluated in our office yesterday with Dr. Gomez for an infection in her left thumb. The patient states that it started out as a blister and progressively got worse. She denies any recent fever or c hills. She had been seen by her primary care physician and referred to our office. Her PCP had gotten cultures which were sent to [facility] on 03/07/2023. Final results on 03/13/2023 reveal moderate MRSA. She has been on multiple courses of oral antibiotics with minimal improvement. She was admitted from the ER last night for IV antibiotics and evaluation with infectious disease. 03/15/2023: The patient is stable from an orthopedic standpoint. She has been seen by internal medicine and infectious disease. Her antibiotics have been changed to vancomycin. She has had no fever or chills. She has no new complaints or concerns today. She states that the thumb is feeling slightly better. 03/16/2023: The patient is doing well from an orthopedic standpoint. She has no new complaints or concerns today. She states that her thumb is feeling better. She would like to go home today if possible. The patient has been seen by infectious disease. We are awaiting final recommendations for discharge antibiotics. She has been afebrile. Objective - Vital Signs Vital signs: Vital Signs Temp 98.3 F 03/16/23 06:55 Pulse 58 L 03/16/23 06:55 Resp 16 03/16/23 06:55 BP 101/58 03/16/23 06:55 Pulse Ox 100 03/16/23 06:55 FiO2 Intake & Output 03/15/23 03/16/23 03/16/23 18:59 06:59 18:59 Intake Total 888 Balance 888 Intake: Oral 888 Other: Voiding Method Toilet # Voids 2 1 - Exam Exam of the left thumb reveals a 1-2 cm wound about the radial aspect of the dorsal thumb in the region of the IP joint. She has Minimal erythema to the surrounding area, Improved from yesterday. There is An area of eschar in the middle of the wound but no active drainage. She has slight improvement of motion at the IP joint. She has fairly good motion at the MCP and CMC joints of the thumb. Neurovascular status to the upper extremity is intact. - Labs CBC & Chem 7: 03/13/23 18:18 03/15/23 05:33 Labs: Abnormal Lab Results - Last 24 Hours (Table) 03/15/23 Range/Units 05:33 Creatinine 0.5 L (0.6-1.5) mg/dL Microbiology - Last 24 Hours (Table) 03/13/23 18:18 Blood Culture - Preliminary Blood Assessment and Plan (1) MRSA infection Current Visit: Yes Status: Acute Code(s): A49.02 - METHICILLIN RESIS STAPH INFECTION, UNSP SITE SNOMED Code(s): 246663941 (2) Infection of thumb Current Visit: Yes Status: Acute Code(s): L08.9 - LOCAL INFECTION OF THE SKIN AND SUBCUTANEOUS TISSUE, UNSP SNOMED Code(s): 275934930 (3) Recurrent seizures Current Visit: No Status: Acute Code(s): G40.909 - EPILEPSY, UNSP, NOT INTRACTABLE, WITHOUT STATUS EPILEPTICUS SNOMED Code(s): 01750725 Plan: The clinical findings are discussed with the patient. She will continue on the IV vancomycin. Local wound care per infectious disease. I would like to discharge her home today. I have faxed the culture report from [facility] showing MRSA. If she requires a PICC line that may hopefully be done today that she may be able to be discharged.
[2023-03-16 09:46] LABS: Blood Urea Nitrogen 18.8 mg/dL (9.0-27.0); Calcium 9.5 mg/dL (8.7-10.3); Carbon Dioxide 25.3 mmol/L (21.6-31.8); Chloride 101 mmol/L (96-109); Glucose 90 mg/dL (70-110); Potassium 4.7 mmol/L (3.5-5.5); Sodium 136 mmol/L (135-145)
[2023-03-16] MEDS: FOLIC ACID 1 MG TAB PO SCH (10:09)
[2023-03-16] MEDS: levETIRAcetam 500 MG TAB PO SCH (10:09)
[2023-03-16] MEDS: DIVALPROEX ER 500 MG TAB.ER.24H PO SCH (10:10)
[2023-03-16] MEDS: clonazePAM 0.5 MG TAB PO SCH (10:38)
[2023-03-16] MEDS ORDERED: VANCOMYCIN TROUGH DUE 1 EACH MISC MISCELLANE ONE (12:00)
[2023-03-16 12:39] LABS: African American GFR (CKD) >90 (>60 ml/min/1.73 sqM); Non-African American GFR(CKD) >90 (>60 ml/min/1.73 sqM)
--- NOTE | 2023-03-16 12:44 | P.DS ---
Providers Date of admission: 03/13/23 21:23 Expected date of discharge: 03/16/23 Attending physician: Santi Gomez Consults: 03/14/23 09:55 Consult Physician Routine Consulting Provider: Ariana Hyatt Consult Reason/Comments: Medical Management Do you want consulting provider notified?: Yes 03/14/23 09:56 Consult Physician Routine Consulting Provider: Pablito Bean Consult Reason/Comments: Left thumb infection Do you want consulting provider notified?: Yes Primary care physician: Stuart Harmon - Discharge Diagnosis(es) (1) MRSA infection Current Visit: Yes Status: Acute (2) Infection of thumb Current Visit: Yes Status: Acute (3) Recurrent seizures Current Visit: No Status: Acute Hospital Course: This is a 58-year-old female who was evaluated in our office On 03/13/[address] Gomez for an infection in her left thumb. The patient states that it started out as a blister and progressively got worse. She denies any recent fever or chills. She had been seen by her primary care physician and referred to our office. Her PCP had gotten cultures which were sent to [facility] on 03/07/2023. Final results on 03/13/2023 reveal moderate MRSA. She has been on multiple courses of oral antibiotics with minimal improvement. She was admitted from the ER last night for IV antibiotics and evaluation with infectious disease. She was started on Unasyn and switched to vancomycin. She was evaluated by infectious disease and internal medicine. Her thumb improved throughout her inpatient stay. She is cleared for discharge on 03/16/2023. Please see med rec for accurate list of home medications. Wound care and antibiotics per infectious disease. Patient Condition at Discharge: Fair Plan - Discharge Summary New Discharge Prescriptions: New Sulfamethox-Tmp 800-160Mg [Bactrim DS 800-160 mg] 1 tab PO Q12HR #20 tab Continue Divalproex ER [Depakote ER] 500 mg PO BID levETIRAcetam [Keppra] 1,000 mg PO Q12HR #60 tab clonazePAM [KlonoPIN] 0.5 mg PO BID Folic Acid 1 mg PO DAILY traMADol HCL 50 - 100 mg PO Q4H PRN PRN Reason: Pain Discontinued Sulfamethox-Tmp 800-160Mg [Bactrim DS 800-160 mg] 1 tab PO Q12HR Discharge Medication List Divalproex ER [Depakote ER] 500 mg PO BID 10/02/15 [History] levETIRAcetam [Keppra] 1,000 mg PO Q12HR #60 tab 10/08/15 [Rx] Folic Acid 1 mg PO DAILY 06/08/19 [History] clonazePAM [KlonoPIN] 0.5 mg PO BID 06/08/19 [History] traMADol HCL 50 - 100 mg PO Q4H PRN 03/13/23 [History] Sulfamethox-Tmp 800-160Mg [Bactrim DS 800-160 mg] 1 tab PO Q12HR #20 tab 03/16/23 [Rx] Follow up Appointment(s)/Ref[facility] - 1-2 Days ([facility] will call you to schedule your in home nursing and wound care visits. ) Santi Gomez MD [STAFF PHYSICIAN] - 10 Days Stuart Harmon DO [Primary Care Provider] - 1 Week Pablito Bean MD [STAFF PHYSICIAN] - 2 Weeks Discharge Disposition: HOME SELF-CARE
--- NOTE | 2023-03-16 14:59 | P.PN ---
Subjective Progress Note Date: 03/16/23 Subjective: Patient seen and examined at bedside. No acute events overnight. Denies any new complaints. Pertinent positives and negatives as discussed above, a complete review of systems was performed and all other systems are negative. Vitals Signs Reviewed. General: nontoxic, no distress, appears at stated age Derm: warm, dry, left thumb. Discharge Head: atraumatic, normocephalic, symmetric Eyes: EOMI, no lid lag, anicteric sclera, pupils equal round reactive to light ENT: Nose and ears atraumatic Neck: No thyromegaly, supple Mouth: no lip lesion, mucus membranes moist Cardiovascular: S1S2 reg, no murmur, no edema Lungs: clear to auscultation bilateral, no rhonchi, no rales, no wheeze, no accessory muscle use Abdominal: soft, nontender to palpation, no guarding, no appreciable organomegaly Ext: no gross muscle atrophy, muscle strength muscle strength 5 out of 5 in all 4 extremities, no contractures Neuro: CN II-XII grossly intact, has intention tremor bilaterally Psych: Alert, oriented, appropriate affect Data Reviewed Today: Pertinent Labs: Sodium 136, potassium 4.7, creatinine 0.5 Imaging: No new imaging Assessment and Plan: Left thumb infection, cultures in outpatient setting grew MRSA Failed outpatient antibiotic therapy Mild hyperkalemia, resolved Hyponatremia, resolved -Orthopedic surgery note reviewed, patient being discharged -ID consulted, was on IV vancomycin, discharged on Bactrim Chronic: Seizure disorder -Continue home medications Patient is medically optimized for discharge home Thank you for allowing us to participate in the care of this pleasant patient. Do not hesitate to contact us with questions. Someone can be reached from the [facility] [place][Note 2] hospitalist group all hours of the day at [phone] or via perfect serve. Objective - Vital Signs Vital signs: Vital Signs Temp 98.3 F 03/16/23 06:55 Pulse 58 L 03/16/23 06:55 Resp 16 03/16/23 06:55 BP 101/58 03/16/23 06:55 Pulse Ox 100 03/16/23 06:55 FiO2 Intake & Output 03/15/23 03/16/23 03/16/23 18:59 06:59 18:59 Intake Total 888 180 Balance 888 180 Intake: Oral 888 180 Other: Voiding Method Toilet # Voids 2 1 - Labs CBC & Chem 7: 03/13/23 18:18 03/16/23 11:55 Labs: Abnormal Lab Results - Last 24 Hours (Table) 03/16/23 03/16/23 Range/Units 05:10 11:55 Creatinine 0.5 L 0.43 L (0.6-1.5) mg/dL BUN/Creatinine Ratio 37.60 H (12.00-20.00) Ratio Microbiology - Last 24 Hours (Table) 03/13/23 18:18 Blood Culture - Preliminary Blood
== END 2023-03-16 13:57 | disposition home or self-care (01) ==
LOC: EEVIPCON 16:23 → EC 16:23 → 6NMEDSUR 21:23
PROVIDERS: ADMIT Orthopaedic Surgery; ATTEND Orthopaedic Surgery
DX: G40.909 Epilepsy, unspecified, not intractable, without status epilepticus (principal); A49.02 Methicillin resistant Staphylococcus aureus infection, unspecified site; F41.9 Anxiety disorder, unspecified; F17.200 Nicotine dependence, unspecified, uncomplicated; Z83.3 Family history of diabetes mellitus; E87.5 Hyperkalemia; E87.1 Hypo-osmolality and hyponatremia; Z79.899 Other long term (current) drug therapy
CPT/HCPCS: 96361 ×4; 96366 ×3; 96367; 96365; 99285; 36415; 80053; 80048 ×2; 82565; 85025; 80202; 86140; 87040; G0378 ×4; J3370 ×3; J0295 ×2

== ENCOUNTER → 2024-03-13 | Outpatient (CLI) | payer MEDICARE, OTHER ==
--- NOTE | 2024-03-17 08:06 | MM ---
Reason for Exam: Screening (asymptomatic). Last mammogram was performed 5 year(s) and 5 month(s) ago. Patient History: Menarche at age 13. Patient has no children. Postmenopausal. 07/17/2013, Benign Core Biopsy on the right side. 06/05/2013, Benign Core Biopsy on the right side. Risk Values: Kallie 5 year model risk: 2.2%. NCI Lifetime model risk: 12.5%. Prior Study Comparison: 08/03/2015 Bilateral Screening Mammogram, [facility]. 04/17/2017 Bilateral Screening Mammogram, [facility]. 09/26/2018 Bilateral Screening Mammogram, [facility]. Tissue Density: The breasts are extremely dense, which lowers the sensitivity of mammography. Findings: Analyzed By CAD. There is no suspicious group of microcalcifications or new suspicious mass in either breast. Overall Assessment: Benign, BI-RAD 2 Management: Screening Mammogram of both breasts in 1 year. . Patient should continue monthly self-breast exams. A clinical breast exam by your physician is recommended on an annual basis. This exam should not preclude additional follow-up of suspicious palpable abnormalities. Note on Kallie scores and lifetime risk: 1. A Kallie score greater than 3% is considered moderate risk. If this is the case, consider specialist referral to assess eligibility for a risk reducing agent. 2. If overall lifetime risk for the development of breast cancer is 20% or higher, the patient may qualify for future screening with alternating mammogram and breast MRI. Electronically signed and approved by: Charles Sweet M.D. Radiologis
== END | disposition home or self-care (01) ==
LOC: RADMAMWWP 15:50
PROVIDERS: ATTEND Family Medicine
DX: Z12.31 Encounter for screening mammogram for malignant neoplasm of breast (principal); R92.343 Mammographic extreme density, bilateral breasts; Z78.0 Asymptomatic menopausal state
CPT/HCPCS: 77063; 77067

== ENCOUNTER → 2024-06-04 | Outpatient (CLI) | payer MEDICARE ==
--- NOTE | 2024-06-04 11:59 | CTL ---
EXAMINATION TYPE: CT Low Dose Lung DATE OF EXAM ORDERED: 06/04/2024 HISTORY: Personal tobacco use. 40 pack-year history, current smoker. Lung cancer screening CT DLP: [address] CTDI: 1.38 mGy Automated exposure control for dose reduction was used. SCREENING VISIT: First screening visit COMPARISON: None TECHNIQUE: Low dose computed tomography scan was performed through the chest at 1 mm thick sections a nd reconstructed images in multiple planes at 1 mm and [address] DIAGNOSTIC QUALITY: Satisfactory FINDINGS: Nodules: Few scattered punctate calcified granulomas. No clinically significant pulmonary nodule. LUNGS: COPD: Severity: None Fibrosis: Severity: None Lymph nodes: None Other findings: Lingular subsegmental atelectasis. Linear scarring within the left lower lobe. RIGHT PLEURAL SPACE: Effusion: None Calcification: None Thickening: None Pneumothorax: None LEFT PLEURAL SPACE: Effusion: None Calcification: None Thickening: None Pneumothorax: None HEART: Heart Size: Normal Coronary Calcification: None Pericardial Effusion: None OTHER FINDINGS: Upper abdomen: None Bony thorax: Scoliotic curvature of the thoracic spine. Remote right-sided healed rib fractures. Supraclavicular region: None Other: Dystrophic calcifications within the bilateral breasts. IMPRESSION: No clinically significant pulmonary nodule. CT LUNG RAD AND CT CHEST RECOMMENDATION: Lung-Rad 1 Negative: Continue annual screening with LDCT in 12 months. S Modifier (other clinically significant findings): None
== END | disposition home or self-care (01) ==
LOC: RADCTMAIN 10:36
PROVIDERS: ATTEND Family Medicine
DX: Z12.2 Encounter for screening for malignant neoplasm of respiratory organs (principal); J84.10 Pulmonary fibrosis, unspecified; F17.210 Nicotine dependence, cigarettes, uncomplicated
CPT/HCPCS: 71271